=== PATIENT | male | born 1970 | race Caucasian/White ===

== ENCOUNTER 2016-11-29 12:02 | Emergency (ER) | payer OTHER ==
[2016-11-29 12:33] LABS: Hematocrit 34.9 % (42.0-52.0); Hemoglobin 11.5 gm/dL (13.5-18.0); Mean Cell Volume 98.6 fl (78-100); Mean Corpuscular Hemoglobin 32.5 pg (27-31); Mean Platelet Volume 10.2 fl (6.0-9.5); Platelet Count 275 K/mm3 (150-450); Red Blood Count 3.54 M/mm3 (4.7-6.0); Red Cell Distribution Width 13.6 % (11.5-14.0); White Blood Count 6.6 K/mm3 (4.0-10.5)
[2016-11-29 12:34] LABS: Total Cells Counted 100
[2016-11-29] MEDS ORDERED: LIDOCAINE HCL 20 ML UDC PO ONE (12:42)
[2016-11-29] MEDS ORDERED: MAG HYDROX/ALUMINUM HYD/SIMETH 30 ML UDC PO ONE (12:42)
[2016-11-29] MEDS ORDERED: BELLADONNA ALKALOIDS/PHENOBARB 60 ML BTL PO ONE (12:42)
[2016-11-29 12:49] LABS: ALT 15 U/L (19-67); AST 16 U/L (0-48); Albumin * 3.4 gm/dl (3.4-5.0); Alkaline Phosphatase * 117 U/L (50-170); Amylase * 62 U/L (25-115); Anion Gap 11.4 mmol/L (6.8-13.8); BUN/Creatinine Ratio 16.9 (9.0-21.6); Bilirubin, Total 0.3 mg/dL (0.0-1.1); Blood Urea Nitrogen 14 mg/dL (6-23); Ca. Corrected For Albumin 9.6 mg/dL (8.4-10.2); Calcium * 9.4 mg/dL (7.9-10.9); Carbon Dioxide 29.7 mmol/L (24-32.6); Chloride 102 mmol/L (97-106); Glucose * 93 mg/dL (70-110); Lipase 99 U/L (73-393); Potassium 4.1 mmol/L (3.4-4.6); Sodium 139 mmol/L (132-142); Total Protein 8.7 gm/dL (6.2-8.2)
[2016-11-29 12:50] LABS: Troponin I Less than 0.017 ng/ml (0.00-0.10)
[2016-11-29 12:53] LABS: Urine Bilirubin Negative (NEGATIVE); Urine Blood 50 /ul (NEGATIVE); Urine Ketone 5 mg/dL (NEGATIVE); Urine Protein 30 mg/dL (NEGATIVE)
[2016-11-29 13:02] LABS: Urine Appearance Slightly Cloudy; Urine Bacteria 3+; Urine Color Yellow; Urine Nitrite Positive (NEGATIVE); Urine WBC 25-50 /hpf (0-5)
[2016-11-29 13:04] LABS: Band 11 % (0-2.0); Basophil 1 % (0-1); Eosinophil 4 % (0-3); Immature Granulocyte 1 (0-1); Lymphocyte 3 % (20-51); Monocyte 4 % (0-9); Neutrophil 76 % (42-75)
[2016-11-29 13:06] LABS: Platelet Estimate Normal (NORMAL); RBC Morphology Normal (NORMAL)
[2016-11-29 14:32] VITALS: BP 118/82
--- NOTE | 2016-11-29 15:14 | ERNOTE ---
Abdominal HPI - Narrative Date of Service: 11/29/16 - General Chief Complaint: Abdominal Pain Time Seen by Provider: 11/29/16 12:49 Source: patient Exam Limitations: no limitations - Immun/Allergies/Home Medications Immunizatons: IMMUNIZATION HX Immunizations Up to Date Yes History of Influenza Vaccine Yes Hx Pneumococcal Vaccination Yes Allergies/Adverse Reactions: Allergies No Known Allergies Allergy (Verified 11/29/16 12:09) Home Medications: HOME MEDICATIONS Cefdinir [Omnicef] 300 mg PO Q12H #20 cap 11/29/16 [Last Taken Unknown] - History of Present Illness Timing: constant Quality: mild Activities at Onset: none Associated Symptoms: Present: other - constipation Prior Abdominal Problems: Present: other - chronic constipation Review of Systems - Review of Systems Constitutional: Present: See HPI EYE: Present: no symptoms reported ENT: Present: no symptoms reported Respiratory: Present: no symptoms reported Cardiology: Present: no symptoms reported Gastrointestinal/Abdominal: Present: constipation Genitourinary: Present: no symptoms reported Musculoskeletal: Present: no symptoms reported Skin: Present: no symptoms reported Neurological: Present: no symptoms reported Endocrine: Present: no symptoms reported Hematologic/Lymphatic: Present: no symptoms reported Psych: Present: no symptoms reported - Patient's Past Medical History Patient History - Medical: Other - HIV with HIV wasting syndrome Patient History - Cancer: No Hx of Cancer Patient History - Surgical Procedures: Appendectomy - Social History Smoking Status: Current every day smoker Have you smoked in the past 12 months: Yes Alcohol Use: none Drug Use: marijuana Physical Exam - Physical Exam General Appearance: Present: wd/wn, alert, mild distress, cachetic Eye Exam: Normal inspection: bilateral, PERRL: bilateral Ears, Nose, Throat: Present: normal ENT inspection, hearing grossly normal, normal pharynx Neck: Present: normal inspection, nontender Respiratory: Present: no respiratory distress, normal breath sounds, no accessory muscle use, chest nontender, lungs clear Cardiovascular/Chest: Present: regular rate, rhythm, no murmur, normal peripheral pulses Gastrointestinal/Abdominal: Present: normal bowel sounds, nondistended, soft, no organomegaly, tenderness - mild generalized Rectal Exam: Present: deferred Back Exam: Present: normal inspection, normal range of motion Extremity Exam: Present: normal inspection, non-tender, no edema, normal range of motion Neurological Exam: Present: alert, oriented, normal mood/affect Skin Exam: Present: normal color, warm/dry Lymphatic Exam: Present: no adenopathy ED Progress - Results and Orders Patient's Lab Results:: I have reviewed the patient's lab results. - Vital Signs Patient's Vital Signs:: I have reviewed the patient's vital signs. Vital Signs: Vital Signs 11/29/16 11/29/16 11/29/16 12:06 12:58 13:29 Pulse Rate 102 H 94 95 Respiratory 14 20 16 Rate Blood Pressure 123/86 120/84 115/78 O2 Sat by Pulse 99 98 96 Oximetry 11/29/16 14:31 Pulse Rate 89 Respiratory 19 Rate Blood Pressure 118/82 O2 Sat by Pulse 96 Oximetry - X-Ray X-Ray #1 X-Ray: abdomen - Progress/Reassessment Chief Complaint: Abdominal Pain Progress:: Unchanged - Transfer of Care Expected Disposition: Discharge Plan - Plan Plan: Pt was given a gram of Rocephin IM to assist in treating the UTI and a bottle of Go-Lytely was sent home with him as well. Departure - Departure Clinical Impression: Constipation, HIV wasting syndrome, UTI (urinary tract infection) Disposition: Home self-care Condition: Good Instructions: Urinary Tract Infection, Adult, [id number], Constipation, Adult , [id number], HIV Infection and AIDS Prescriptions: Cefdinir [Omnicef] 300 mg PO Q12H #20 cap
[2016-11-29] MEDS ORDERED: SOD CHLORIDE/NAHCO3/KCL/PEG'S 4,000 ML BTL PO ONE (16:00)
== END 2016-11-29 15:14 | disposition home or self-care (01) ==
LOC: ER 12:02
DX: K59.00 Constipation, unspecified (principal); B20 Human immunodeficiency virus [HIV] disease; R64 Cachexia; N39.0 Urinary tract infection, site not specified; F17.210 Nicotine dependence, cigarettes, uncomplicated